=== PATIENT | female | born 1960 | race Asian ===

== ENCOUNTER → 2023-10-30 09:05 | Outpatient (REF) | payer BC, SELFPAY | LOC: HWRAD 09:05 | PROVIDERS: ATTENDING PHYSICIAN Nurse Practitioner Adult Health | DX: M25.561 Pain in right knee (principal) | CPT/HCPCS: 73564 ==

== ENCOUNTER → 2024-12-01 09:29 | Outpatient (REF) | payer BC, SELFPAY | LOC: EMG 09:29 | PROVIDERS: ATTENDING PHYSICIAN Nurse Practitioner Adult Health | DX: R20.2 Paresthesia of skin (principal) | CPT/HCPCS: 95886; 95911 ==

== ENCOUNTER → 2025-05-16 20:33 | Outpatient (REF) | payer BC, SELFPAY | LOC: PAVMRI 20:33 | PROVIDERS: ATTENDING PHYSICIAN Internal Medicine Endocrinology, Diabetes & Metabolism; FAMILY PHYSICIAN Nurse Practitioner Adult Health | DX: D35.02 Benign neoplasm of left adrenal gland (principal); E03.9 Hypothyroidism, unspecified; E23.6 Other disorders of pituitary gland; E53.9 Vitamin B deficiency, unspecified; E55.9 Vitamin D deficiency, unspecified; E66.9 Obesity, unspecified; L68.0 Hirsutism; R73.02 Impaired glucose tolerance (oral); R74.01 Elevation of levels of liver transaminase levels; R94.7 Abnormal results of other endocrine function studies; K76.0 Fatty (change of) liver, not elsewhere classified; E23.2 Diabetes insipidus; R94.6 Abnormal results of thyroid function studies | CPT/HCPCS: 74181 ==

== ENCOUNTER → 2025-06-23 07:15 | Outpatient (REF) | payer BC, SELFPAY | LOC: MRI 07:15 | PROVIDERS: ATTENDING PHYSICIAN Internal Medicine Endocrinology, Diabetes & Metabolism; FAMILY PHYSICIAN Nurse Practitioner Adult Health | DX: D35.02 Benign neoplasm of left adrenal gland (principal); E03.9 Hypothyroidism, unspecified; E23.6 Other disorders of pituitary gland; E53.9 Vitamin B deficiency, unspecified | CPT/HCPCS: 70551 ==

== ENCOUNTER → 2025-08-15 08:21 | Outpatient (REF) | payer BC, SELFPAY | LOC: HWRAD 08:21 | PROVIDERS: ATTENDING PHYSICIAN Nurse Practitioner Adult Health | DX: Z78.0 Asymptomatic menopausal state (principal); Z12.31 Encounter for screening mammogram for malignant neoplasm of breast | CPT/HCPCS: 77063; 77067; 77080 ==